=== PATIENT | male | born 1960 | race Caucasian/White ===

== ENCOUNTER 2021-12-10 00:48 | Day surgery (SDC) | payer OTHER, SELFPAY ==
[2021-12-01 11:28] VITALS: BMI 30.2
--- NOTE | 2021-12-09 12:41 | PM.HPGS ---
History of Present Illness History of Present Illness Consent: Risks, benefits, and alternatives have been discussed and questions answered. Patient agrees to proceed with procedure. Chief complaint: neoplasm screening Narrative: Sridhar Flores is a 61 year old male Referred for colon cancer screening. Review of Systems Review of Systems: All systems reviewed & are unremarkable except as noted in HPI and below PMFSH Past Medical History Medical History Overweight (BMI 25.0-29.9) Family History Family History (Updated 04/24/18 @ 09:26 by DOCTOR UNKNOWN) Father Diabetes mellitus Family history of cardiovascular disease Mother Family history of cardiovascular disease Social History Social History Smoking status: Never smoker Alcohol intake: current Drinks per week: 2 Substance use: never Substance use type: does not use Living arrangements: with family Spiritual care concerns: No Meds Home Medications and Allergies Home Medications Medication Instructions Recorded Confirmed Type No Home Medications 12/01/21 12/10/21 History Allergies Allergy/AdvReac Type Severity Reaction Status Date / Time No Known Allergies Allergy Verified 12/10/21 06:25 Exam Const: General: alert Orientation/consciousness: patient oriented x3 Resp: Auscultation: clear to auscultation bilaterally Cardio: Rhythm: regular rhythm GI: GI Palp: Yes Soft to palpation and No Tenderness to palpation present (GI) Neuro: General: patient oriented x3 Assessment and Plan Assessment and plan (1) Colon cancer screening: Code(s): Z12.11 - Encounter for screening for malignant neoplasm of colon Status: Acute Assessment and Plan: Colonoscopy with possible biopsy or polypectomy or cautery or injection of substances.
[2021-12-10 06:17] VITALS: BP 122/78; PULSE 67; RESP 16; TEMP 36.1; O2SAT 99; BMI 29.5
[2021-12-10] MEDS: LACTATED RINGERS 1,000 ML 150 ML IV CONT (06:39)
--- NOTE | 2021-12-10 07:15 | WPDANESEPPF ---
Anes - Initial Pre Proc Eval Procedure: Operation Date: 12/10/21 07:30 Proposed Procedures p Screening Colonoscopy - Alexx Lerma MD Date/Time: 12/10/21 07:15 Surgeon: Alexx Lerma MD Pre Op Diagnosis: neoplasm screening Patient Data Age: 61 Gender: M Height: 1.85 m Weight: 101.6 kg Last Vital Signs Temp 97.0 F L 12/10/21 06:17 Pulse 67 12/10/21 06:17 Resp 16 12/10/21 06:17 BP 122/78 12/10/21 06:17 Pulse Ox 99 12/10/21 06:17 Allergies Allergy/AdvReac Type Severity Reaction Status Date / Time No Known Allergies Allergy Verified 12/10/21 06:25 Home Medications Medication Instructions Recorded Confirmed Type No Home Medications 12/01/21 12/10/21 History Patient hx anesthesia problems: none Family hx anesthesia problems: none Results Review: All pre-operative results and documents have been reviewed as part of the pre-operative evaluation. [facility] Family History Family History (Updated 04/24/18 @ 09:26 by DOCTOR UNKNOWN) Father Diabetes mellitus Family history of cardiovascular disease Mother Family history of cardiovascular disease Social History Social History Smoking status: Never smoker Alcohol intake: current Drinks per week: 2 Substance use: never Substance use type: does not use Living arrangements: with family Spiritual care concerns: No Anes - Eval Final PreProcedure Day of Procedure 12/10/21 07:15 Patient weight: overweight Heart: regular rate and rhythm Lungs: clear to auscultation Airway: Mallampati scale class II Neurological: alert and oriented Last oral intake: >/= 8 hours ASA classification: II Emergent: no Anesthetic plan: proceed Anesthesia type and monitoring: general GIVS and standard monitoring Results Review: All pre-operative results and documents have been reviewed as part of the pre-operative evaluation. Informed Consent: The patient's anesthetic plan and its attendant risks and benefits were discussed with the patient/family/POA. Questions were solicited and answers provided to the satisfaction of the patient/family/POA.
[2021-12-10 07:48] VITALS: BP 87/54; PULSE 78; RESP 19; O2SAT 95
[2021-12-10 07:58] VITALS: BP 94/60; PULSE 73; RESP 16; O2SAT 96
[2021-12-10 08:08] VITALS: BP 104/75; PULSE 68; RESP 19; O2SAT 97
== END 2021-12-10 08:29 | disposition home or self-care (01) ==
PROVIDERS: PCP Internal Medicine; Visit Provider Internal Medicine Gastroenterology
PROC: 0DJD8ZZ Inspection of Lower Intestinal Tract, Via Natural or Artificial Opening Endoscopic (ICD-10-PCS; CPT 45378; principal; 2021-12-10 07:30)
DX: Z12.11 Encounter for screening for malignant neoplasm of colon (principal)
CPT/HCPCS: 45378; J2405; J7120